=== PATIENT | female | born 1940 | race Caucasian/White ===

== ENCOUNTER 2021-10-06 19:48 | Inpatient (IN) | payer OTHER, MEDICAID ==
[~2021-10-06] VITALS: Ht 165.1 cm; Wt 74.8 kg
[~2021-10-06 19:48] MED LIST: APIX2.5T PO; COR12.5 PO; LIP20 PO
[2021-10-06 19:55] VITALS: BP_SYST 106
[2021-10-06] MEDS ORDERED: MECLIZINE HCL 25 MG TABLET (ANITVERT) PO ONE (21:30)
[2021-10-06] MEDS ORDERED: NS 250 ML IV ONE (21:30)
[2021-10-06 21:35] LABS: BASOPHILS % (AUTO) 0.4 % (0.0-2.0); EOSINOPHILS # (AUTO) 0.3 K/uL (0.0-0.4); EOSINOPHILS % (AUTO) 4.4 % (0.0-4.0); HEMATOCRIT 45.6 % (36-48); HEMOGLOBIN 15.3 g/dL (12.0-16.0); LYMPHOCYTES # (AUTO) 1.3 K/uL (1.0-5.5); LYMPHOCYTES % (AUTO) 20.3 % (20.5-51.5); MEAN CORPUSCULAR HEMOGLOBIN 29 pg (27-31); MEAN CORPUSCULAR HGB CONC 34 % (32-36); MEAN CORPUSCULAR VOLUME 87 fL (79.0-98.0); MONOCYTES # (AUTO) 0.7 K/uL (0.0-1.0); MONOCYTES % (AUTO) 11.4 % (1.7-9.3); NEUTROPHILS % (AUTO) 63.5 % (40.0-70.0); PLATELET COUNT (AUTO) 205 K/uL (130-430); RED BLOOD CELL COUNT(AUTO) 5.23 MIL/uL (4.2-6.2); RED CELL DISTRIBUTION WIDTH 14.6 % (9.0-15.0); WHITE BLOOD COUNT (AUTO) 6.4 K/uL (4.8-10.8)
[2021-10-06 21:39] LABS: ANION GAP 3 (5-15); CALCIUM 8.8 mg/dL (8.4-11.0); CHLORIDE 91 mmol/L (98-107); CREATININE 1.07 mg/dL (0.55-1.30); GLUCOSE 146 mg/dL (70-99); POTASSIUM 4.5 mmol/L (3.5-5.1); SODIUM SERUM 124 mmol/L (136-145); UREA NITROGEN, BLOOD 32 mg/dL (8-21)
[2021-10-06 21:48] LABS: ALBUMIN 3.4 g/dL (3.4-4.8); ASPARTATE AMINOTRANSFERASE 32 U/L (10-37); TOTAL BILIRUBIN 1.1 mg/dL (0.0-1.0)
[2021-10-06 21:59] LABS: ALANINE AMINOTRANSFERASE 4 U/L (12-78)
[2021-10-07 00:48] LABS: BILIRUBIN,URINE NEGATIVE (NEGATIVE); BLOOD, URINE NEGATIVE (NEGATIVE); CLARITY/URINE CLEAR (CLEAR); COLOR,URINE YELLOW (YELLOW); GLUCOSE,URINE NEGATIVE (NEGATIVE); KETONES,URINE NEGATIVE (NEGATIVE); LEUKOCYTE ESTERASE ,URINE TRACE (NEGATIVE); NITRITE, URINE NEGATIVE (NEGATIVE); PROTEIN URINE NEGATIVE (NEGATIVE); UROBILINOGEN,URINE 0.2 (0.2-1.0)
[2021-10-07 01:14] LABS: RBC,URINE 0-3 /HPF (0-3)
[2021-10-07 01:15] LABS: BACTERIA,URINE None Seen /HPF (None Seen); MUCUS,URINE None Seen /LPF (None Seen)
[2021-10-07 04:11] VITALS: BP_SYST 145
[2021-10-07] MEDS: NACL 0.9% 1,000 ML IV SCH ×2 (05:40→16:39)
[2021-10-07 08:00] VITALS: BP_SYST 126
[2021-10-07] MEDS ORDERED: HYDROcodone/ACETAMIN 5-325 MG TAB (NORCO/ VICODIN) PO PRN (10:45)
[2021-10-07] MEDS ORDERED: NALOXONE HCL 0.4 MG/ML AMP (NARCAN) IVP PRN ×2 (10:45)
[2021-10-07] MEDS ORDERED: LORazepam 2 MG/ML VIAL IVP PRN (10:45)
[2021-10-07] MEDS ORDERED: HYDROcodone/ACETAMIN 10-325 MG TAB PO PRN (10:45)
[2021-10-07] MEDS ORDERED: ONDANSETRON HCL 4 MG/2 ML VIAL IVP PRN (10:45)
[2021-10-07 12:00] VITALS: BP_SYST 115
[2021-10-07] MEDS: NORMAL SALINE 5 ML DISP.SYRIN IVF SCH ×4 (14:00→21:10)
[2021-10-07 16:00] VITALS: BP_SYST 110
[2021-10-07 20:00] VITALS: BP_SYST 105
[2021-10-07] MEDS: APIXABAN 2.5 MG TABLET PO SCH (21:09)
[2021-10-07] MEDS: CARVEDILOL 12.5 MG TABLET (COREG) PO SCH (21:09)
[2021-10-07] MEDS: ACETAMINOPHEN 325 MG TABLET PO PRN (22:33)
[2021-10-08] VITALS (7 sets, daily range): BP systolic 144–184
[2021-10-08] MEDS: NACL 0.9% 1,000 ML IV SCH (02:26)
[2021-10-08] MEDS: NORMAL SALINE 5 ML DISP.SYRIN IVF SCH ×6 (06:00→21:08)
[2021-10-08 06:46] LABS: BASOPHILS # (AUTO) 0.1 K/uL (0.0-0.2); BASOPHILS % (AUTO) 1.1 % (0.0-2.0); EOSINOPHILS # (AUTO) 0.3 K/uL (0.0-0.4); EOSINOPHILS % (AUTO) 7.2 % (0.0-4.0); HEMATOCRIT 41.5 % (36-48); HEMOGLOBIN 13.7 g/dL (12.0-16.0); LYMPHOCYTES # (AUTO) 1.5 K/uL (1.0-5.5); LYMPHOCYTES % (AUTO) 34.1 % (20.5-51.5); MEAN CORPUSCULAR HEMOGLOBIN 29 pg (27-31); MEAN CORPUSCULAR HGB CONC 33 % (32-36); MEAN CORPUSCULAR VOLUME 88 fL (79.0-98.0); MONOCYTES # (AUTO) 0.5 K/uL (0.0-1.0); MONOCYTES % (AUTO) 12.3 % (1.7-9.3); NEUTROPHILS % (AUTO) 45.3 % (40.0-70.0); PLATELET COUNT (AUTO) 199 K/uL (130-430); RED BLOOD CELL COUNT(AUTO) 4.71 MIL/uL (4.2-6.2); RED CELL DISTRIBUTION WIDTH 14.6 % (9.0-15.0); WHITE BLOOD COUNT (AUTO) 4.4 K/uL (4.8-10.8)
[2021-10-08 07:52] LABS: ALANINE AMINOTRANSFERASE 3 U/L (12-78); ALBUMIN 2.8 g/dL (3.4-4.8); ANION GAP 8 (5-15); ASPARTATE AMINOTRANSFERASE 29 U/L (10-37); CALCIUM 8.2 mg/dL (8.4-11.0); CHLORIDE 102 mmol/L (98-107); CREATININE 0.66 mg/dL (0.55-1.30); GLUCOSE 73 mg/dL (70-99); PHOSPHORUS 3.1 mg/dL (2.7-4.5); POTASSIUM 4.1 mmol/L (3.5-5.1); SODIUM SERUM 135 mmol/L (136-145); TOTAL BILIRUBIN 0.7 mg/dL (0.0-1.0); UREA NITROGEN, BLOOD 19 mg/dL (8-21)
[2021-10-08] MEDS: ATORVASTATIN 20 MG TABLET PO SCH (09:16)
[2021-10-08] MEDS: APIXABAN 2.5 MG TABLET PO SCH ×2 (09:18→21:04)
[2021-10-08] MEDS: CARVEDILOL 12.5 MG TABLET (COREG) PO SCH ×2 (09:21→21:05)
[2021-10-08] MEDS ORDERED: hydrALAZINE HCL 20 MG/ML VIAL IVP PRN (11:00)
[2021-10-08] MEDS ORDERED: amLODIPine BESYLATE 10 MG TABLET PO ONE (11:00)
[2021-10-08] MEDS: ACETAMINOPHEN 325 MG TABLET PO PRN ×2 (12:01→16:48)
[2021-10-08 12:11] LABS: FREE T4 (FREE THYROXINE) 1.3 ng/dl (0.8-1.5); THYROID STIMULATING HORMONE 5.89 uIu/mL (0.36-3.74)
[2021-10-09 04:00] VITALS: BP_SYST 157
[2021-10-09] MEDS: ACETAMINOPHEN 325 MG TABLET PO PRN ×2 (04:58→09:29)
[2021-10-09] MEDS: NORMAL SALINE 5 ML DISP.SYRIN IVF SCH ×4 (06:11→21:47)
[2021-10-09 08:00] VITALS: BP_SYST 165
[2021-10-09] MEDS: CARVEDILOL 12.5 MG TABLET (COREG) PO SCH ×2 (09:27→21:45)
[2021-10-09] MEDS: amLODIPine BESYLATE 10 MG TABLET PO SCH (09:28)
[2021-10-09] MEDS: ATORVASTATIN 20 MG TABLET PO SCH (09:28)
[2021-10-09] MEDS: APIXABAN 2.5 MG TABLET PO SCH ×2 (09:30→21:47)
[2021-10-09] MEDS ORDERED: MEGESTROL ACETATE 400 MG/10 ML UDC PO ONE (11:00)
[2021-10-09 12:40] VITALS: BP_SYST 115
[2021-10-09] MEDS: FLUTICASONE PROPIONATE 50 mCg/SPRAY 16 GM NS SCH (13:25)
[2021-10-09 16:00] VITALS: BP_SYST 97
[2021-10-09 20:05] VITALS: BP_SYST 108
[2021-10-10 00:15] VITALS: BP_SYST 119
[2021-10-10] MEDS: NORMAL SALINE 5 ML DISP.SYRIN IVF SCH (05:47)
[2021-10-10 08:20] VITALS: BP_SYST 117
[2021-10-10] MEDS ORDERED: MEGESTROL ACETATE 400 MG/10 ML UDC PO SCH (09:00)
[2021-10-10] MEDS: ATORVASTATIN 20 MG TABLET PO SCH (09:44)
[2021-10-10] MEDS: CARVEDILOL 12.5 MG TABLET (COREG) PO SCH (09:45)
[2021-10-10] MEDS: amLODIPine BESYLATE 10 MG TABLET PO SCH (09:45)
[2021-10-10] MEDS: APIXABAN 2.5 MG TABLET PO SCH (09:46)
[2021-10-10] MEDS: FLUTICASONE PROPIONATE 50 mCg/SPRAY 16 GM NS SCH (09:48)
[2021-10-10 10:24] VITALS: BP_SYST 116
== END 2021-10-10 12:10 | disposition home health service (06) | DRG 312 ==
LOC: SED 19:48 → STU 10-07 02:06
PROVIDERS: ADMIT Family Medicine; ATTEND Family Medicine
PROC: 4A10X4Z Monitoring of Central Nervous Electrical Activity, External Approach (ICD-10-PCS; principal; 2021-10-08)
DX: I95.1 Orthostatic hypotension (principal); E87.1 Hypo-osmolality and hyponatremia; I48.91 Unspecified atrial fibrillation; I10 Essential (primary) hypertension; E11.9 Type 2 diabetes mellitus without complications; E78.5 Hyperlipidemia, unspecified; Z20.822 Contact with and (suspected) exposure to COVID-19
CPT/HCPCS: 36415; 70450-TC; 71045; 76376; 80053; 81000; 82962; 83735; 84100; 84439; 84443; 84484; 85025; 93005; 93880; 95816; 97110-GP; 97116-GP; 97530-GP; 99285; G0378; J0360; J2405; J8597